=== PATIENT | male | born 1970 | race Caucasian/White ===

== ENCOUNTER 2023-09-15 10:22 | Emergency (ER) | payer MEDICAID ==
[2023-09-15] MEDS ORDERED: Diphtheria,Pertussis(Acell),Tetanus Vaccine 0.5 ML Syringe IM ONE (10:42)
[2023-09-15] MEDS ORDERED: Bacitracin Oint 1 GM U/D Packet TOP ONE (10:43)
[2023-09-15] MEDS ORDERED: Lidocaine 1% 5 ML VIAL INJECT ONE (10:43)
== END 2023-09-15 11:58 | disposition home or self-care (01) ==
LOC: JP.ED 10:22
DX: S61.011A Laceration without foreign body of right thumb without damage to nail, initial encounter (principal); Z23 Encounter for immunization; Z88.0 Allergy status to penicillin; W26.0XXA Contact with knife, initial encounter
CPT/HCPCS: 12001; 90471; 90715; 99282-25

== ENCOUNTER 2023-11-03 12:01 | Emergency (ER) | payer MEDICAID ==
[2023-11-03] MEDS ORDERED: Lidocaine 1% 10 ML MDV INJECT ONE (12:36)
== END 2023-11-03 13:33 | disposition home or self-care (01) ==
LOC: JP.ED 12:01
DX: S61.212A Laceration without foreign body of right middle finger without damage to nail, initial encounter (principal); E78.00 Pure hypercholesterolemia, unspecified; Z86.16 Personal history of COVID-19; Z79.899 Other long term (current) drug therapy; Z88.0 Allergy status to penicillin; Z90.49 Acquired absence of other specified parts of digestive tract; W25.XXXA Contact with sharp glass, initial encounter
CPT/HCPCS: 12001; 99282